=== PATIENT | female | born 2000 | race Hispanic/Latino ===

== ENCOUNTER → 2025-01-29 | Outpatient (CLI) | payer BC ==
[2025-01-29 17:55] LABS: HCG, SERUM QUANTITATIVE < 2.6 MIU/ML (<4.2)
[2025-01-29 17:57] LABS: LUTEINIZING HORMONE 19.0 mIU/ML
[2025-01-29 18:01] LABS: FREE T4 1.28 NG/DL (0.89-1.76)
== END ==
LOC: M WUC 14:17
PROVIDERS: ATTEND Obstetrics & Gynecology
DX: N92.1 Excessive and frequent menstruation with irregular cycle (principal)

== ENCOUNTER → 2025-03-22 | Outpatient (CLI) | payer BC | LOC: M RAD 16:10 | PROVIDERS: ATTEND Obstetrics & Gynecology | DX: N92.1 Excessive and frequent menstruation with irregular cycle (principal); R93.89 Abnormal findings on diagnostic imaging of other specified body structures ==